=== PATIENT | male | born 1960 | race Caucasian/White ===

== ENCOUNTER 2017-10-20 11:11 | Emergency (ER) | payer OTHER ==
[~2017-10-20] VITALS: Ht 167.6 cm; Wt 69.8 kg
[2017-10-20 11:17] VITALS: BP 165/99; Ht 167.6 cm; Wt 69.8 kg
== END 2017-10-20 13:13 | disposition home or self-care (01) ==
LOC: ED 11:11
DX: S01.01XA Laceration without foreign body of scalp, initial encounter (principal); W01.0XXA Fall on same level from slipping, tripping and stumbling without subsequent striking against object, initial encounter; Y93.89 Activity, other specified; Y92.89 Other specified places as the place of occurrence of the external cause; Y99.8 Other external cause status
CPT/HCPCS: 90715

== ENCOUNTER 2017-10-28 14:30 | Emergency (ER) | payer OTHER ==
[~2017-10-28] VITALS: Ht 167.6 cm; Wt 72.6 kg
[2017-10-28 14:44] VITALS: BP 141/96; Ht 167.6 cm; Wt 72.6 kg
== END 2017-10-28 15:19 | disposition home or self-care (01) ==
LOC: ED 14:30
DX: Z48.02 Encounter for removal of sutures (principal)